=== PATIENT | female | born 1990 | race Caucasian/White ===

== ENCOUNTER → 2024-05-08 13:43 | Outpatient (REF) | payer OTHER, SELFPAY | LOC: HWEVLT 13:43 | PROVIDERS: ATTENDING PHYSICIAN Radiology Diagnostic Radiology | DX: I83.893 Varicose veins of bilateral lower extremities with other complications (principal) | CPT/HCPCS: 93970 ==

== ENCOUNTER → 2024-08-01 10:32 | Outpatient (REF) | payer OTHER, SELFPAY | LOC: RAD 10:32 | PROVIDERS: ATTENDING PHYSICIAN Nurse Practitioner | DX: M79.673 Pain in unspecified foot (principal) | CPT/HCPCS: 73620 ==

== ENCOUNTER → 2025-04-14 09:25 | Outpatient (REF) | payer OTHER, SELFPAY | LOC: WDC 09:25 | PROVIDERS: ATTENDING PHYSICIAN Obstetrics & Gynecology | DX: N64.4 Mastodynia (principal) | CPT/HCPCS: 76642; 77062; 77066 ==

== ENCOUNTER → 2025-05-08 11:52 | Outpatient (REF) | payer OTHER, SELFPAY | LOC: RAD 11:52 | PROVIDERS: ATTENDING PHYSICIAN Nurse Practitioner | DX: M54.16 Radiculopathy, lumbar region (principal); N81.4 Uterovaginal prolapse, unspecified | CPT/HCPCS: 72110 ==

== ENCOUNTER → 2025-05-20 19:19 | Outpatient (REF) | payer OTHER, SELFPAY | LOC: PAVMRI 19:19 | PROVIDERS: ATTENDING PHYSICIAN Physician Assistant Surgical; FAMILY PHYSICIAN Nurse Practitioner | DX: M54.16 Radiculopathy, lumbar region (principal); M54.59 Other low back pain; M47.816 Spondylosis without myelopathy or radiculopathy, lumbar region | CPT/HCPCS: 72148 ==

== ENCOUNTER 2025-06-16 06:53 | Outpatient (RCR) | payer OTHER, SELFPAY | END 2025-06-16 23:59 | disposition home or self-care (01) | LOC: RPT 06:53 | PROVIDERS: ATTENDING PHYSICIAN Nurse Practitioner | DX: M54.16 Radiculopathy, lumbar region (principal); N81.4 Uterovaginal prolapse, unspecified; N39.3 Stress incontinence (female) (male); Z73.6 Limitation of activities due to disability; M62.89 Other specified disorders of muscle; M25.551 Pain in right hip | CPT/HCPCS: 97110; 97162 ==